=== PATIENT | male | born 1940 | race Hispanic/Latino ===

== ENCOUNTER 2022-05-20 14:54 | Emergency (ER) | payer OTHER, MEDICARE ==
[~2022-05-20] VITALS: Ht 170.2 cm; Wt 95.3 kg
[2022-05-20 15:44] LABS: BASOPHILS % (AUTO) 1.6 % (0.0-5.0); EOSINOPHILS % (AUTO) 9.4 % (0.0-8.0); LYMPHOCYTES % (AUTO) 32.3 % (21.0-51.0); MEAN CORPUSCULAR HEMOGLOBIN 30.9 pg (27.0-33.0); MEAN CORPUSCULAR HGB CONC 32.1 g/dL (32.0-36.0); MEAN CORPUSCULAR VOLUME 96.2 fL (79-99); MONOCYTES % (AUTO) 12.4 % (3.0-13.0); PLATELET COUNT (AUTO) 162 K/uL (130-400); RED BLOOD CELL COUNT(AUTO) 3.95 MIL/uL (4.50-6.20); RED CELL DISTRIBUTION WIDTH 14.9 % (11.0-15.5); WHITE BLOOD COUNT (AUTO) 5.7 K/uL (4.8-10.8)
[2022-05-20 15:54] LABS: CREATININE 1.6 mg/dL (0.5-1.5); POTASSIUM 5.1 mmol/L (3.5-5.1)
[2022-05-20 16:03] LABS: ALBUMIN 3.4 g/dL (3.5-5.0); TOTAL PROTEIN, SERUM 6.6 g/dL (6.0-8.3)
[2022-05-20 16:08] LABS: APPEARANCE,URINE CLEAR (CLEAR); BILIRUBIN,URINE NEGATIVE (NEGATIVE); COLOR,URINE YELLOW (YELLOW); GLUCOSE, URINE (UA) NEGATIVE (NEGATIVE); KETONES,URINE NEGATIVE (NEGATIVE); LEUKOCYTE ESTERASE ,URINE TRACE (NEGATIVE); NITRATE,URINE NEGATIVE (NEGATIVE); OCCULT BLOOD,URINE NEGATIVE (NEGATIVE); PROTEIN,URINE NEGATIVE (NEGATIVE)
[2022-05-20 16:19] LABS: BACTERIA,URINE Few /HPF (None Seen); RBC,URINE 0-1 /HPF (0-1); SQUAMOUS EPITHELIAL CELL,UR Few /HPF (0-2); WBC,URINE 0-1 /HPF (0-1)
[2022-05-20 16:20] LABS: MUCUS,URINE Few LPF (None Seen)
[2022-05-20 16:49] VITALS: BP 126/84
== END 2022-05-20 16:58 | disposition home or self-care (01) ==
LOC: EDH 14:54
DX: R42 Dizziness and giddiness (principal); J44.9 Chronic obstructive pulmonary disease, unspecified; K21.9 Gastro-esophageal reflux disease without esophagitis; I10 Essential (primary) hypertension; G20 Parkinson's disease; Z86.73 Personal history of transient ischemic attack (TIA), and cerebral infarction without residual deficits
CPT/HCPCS: 36415; 70450; 80053; 81001; 84484; 85025; 93005

== ENCOUNTER 2024-08-24 14:06 | Emergency (ER) | payer OTHER, MEDICARE ==
[~2024-08-24] VITALS: Ht 177.8 cm; Wt 90.7 kg
[~2024-08-24 14:06] MED LIST: ALBUHFA IH; ALLO300T2 PO; ATOR40TA69 PO; CARB1TAB35 PO; DIGO125T71 PO; DILT120C89 PO; DONE10TA43 PO; METF-445 PO; MONT-46 PO; RIVA20TA PO
[2024-08-24] MEDS ORDERED: IOHEXOL-350 75 ML VIAL IV ONE (14:19)
--- NOTE | 2024-08-24 14:27 | NUR ---
DR HERNANDEZ RADIOLOG[facility] CALLED FOR CT REPORT NEGATIVE STROKE, ATROPHY. NOTIFIED ER PHYSICIAN DR BANUELOS
--- NOTE | 2024-08-24 14:29 | HMCIMG ---
Exam: NONCONTRAST CT BRAIN REASON: STROKE/TIA. COMPARISON: 8 2222 hours TECHNIQUE: Images are obtained from vertex to the skull base. The exam was performed without IV contrast. FINDINGS: There are generous ventricles and sulci. There is decreased attenuation in the deep central white matter. These findings are consistent with atrophy. There are no acute appearing focal parenchymal lesions. There is no evidence of mass, intracranial hemorrhage or acute stroke. Posterior fossa and brainstem structures appear unremarkable. There are no abnormal fluid collections. Extra cranial soft tissues appear unremarkable as well. IMPRESSION: 1. Atrophy, no acute finding. 2. These findings discussed with patient's care team at the time of dictation. CT was performed with one or more following dose reduction techniques: automated exposure control, adjustment of the mA and kv according to patient's size, or use of a iterative reconstruction technique.
--- NOTE | 2024-08-24 14:41 | NUR ---
NIHSS 19. UNABLE TO DOCUMENT. NOT ALLOWING TO SUBMIT.
--- NOTE | 2024-08-24 14:52 | HMCIMG ---
CT ANGIO HEAD AND NECK REASON: stroke symptoms TECHNIQUE: Images were obtained from thoracic inlet through the vertex of the skull before and after bolus IV infusion of 75 ml of Isovue 350. 2D and 3D multiplanar reconstruction images were obtained in the head and neck. FINDINGS: Post contrast images in the neck show normal-appearing common carotid arteries to the level of the carotid bifurcations. There is occlusion of the right internal carotid artery at the bifurcation. There is moderate plaque on the left. There is 50-70% stenosis of the proximal left internal carotid artery by heavily calcified plaque. The left internal carotid artery is patent to the level of the [place]. There is a dominant right and smaller left vertebral artery, both are patent to the basilar confluence. Images in the brain demonstrate normal-appearing internal carotid arteries. Anterior, middle and posterior cerebral arteries appear normal. Posterior fossa vessels are unremarkable as well. There is no evidence of aneurysm or AVM. There is no evidence of focal vessel occlusion. IMPRESSION: 1. 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 2. There is heavily calcified plaque in the left bifurcation, there is 50-70% stenosis of the proximal left internal carotid artery. 3. Dominant right and smaller left vertebral arteries which are patent to the basilar confluence. 4. Normal-appearing intracranial vasculature. CT was performed with one or more following dose reduction techniques: automated exposure control, adjustment of the mA and kv according to patient's size, or use of a iterative reconstruction technique.
--- NOTE | 2024-08-24 14:57 | EKG ---
[facility] Test Date: 2024-08-24 Test Time: 14:39:38 Pat Name: RADHA CASTELAN Department: ED Room: Gender: M Production Artist: [id number] Requested By: ARABELLA BANUELOS Order Number: [id number] Reading MD: Justin Maravilla Measurements Intervals [place] Rate: 117 P: 0 IN: 0 QRS: -28 QRSD: 100 T: 143 QT: 334 QTc: 466 Interpretive Statements Atrial fibrillation Inferior infarct, old Anterolateral infarct, age indeterminate Compared to ECG 06/30/2024 11:47:10 Atrial flutter no longer present 2:1 AV block no longer present Left ventricular hypertrophy no longer present Early repolarization no longer present Myocardial infarct finding still present Electronically Signed On 08-24-2024 15:08:14 GROUP MANAGING DIRECTOR by Justin Maravilla Please click the below link to view image of tracing.
[2024-08-24 15:02] LABS: BASOPHILS # (AUTO) 0.05 K/uL (0.00-0.20); BASOPHILS % (AUTO) 0.7 % (0.0-5.0); EOSINOPHILS # (AUTO) 0.03 K/uL (0.00-0.70); EOSINOPHILS % (AUTO) 0.4 % (0.0-8.0); HEMATOCRIT 38.2 % (42-54); IMMATURE GRANULOCYTE ABSOLUTE 0.02 K/uL (0-1); LYMPHOCYTES # (AUTO) 0.8 K/uL (1.0-4.8); LYMPHOCYTES % (AUTO) 10.3 % (21.0-51.0); MEAN CORPUSCULAR HEMOGLOBIN 30.5 pg (27.0-33.0); MEAN CORPUSCULAR VOLUME 92.5 fL (79-99); MONOCYTES # (AUTO) 0.4 K/uL (0.1-1.0); MONOCYTES % (AUTO) 5.6 % (3.0-13.0); NEUTROPHILS # (AUTO) 6.1 K/uL (1.8-7.7); NEUTROPHILS % (AUTO) 82.7 % (40.0-77.0); PLATELET COUNT (AUTO) 141 K/uL (130-400); RED BLOOD CELL COUNT(AUTO) 4.13 MIL/uL (4.50-6.20); RED CELL DISTRIBUTION WIDTH 13.6 % (11.0-15.5); WHITE BLOOD COUNT (AUTO) 7.3 K/uL (4.8-10.8)
--- NOTE | 2024-08-24 15:15 | NUR ---
[place] [facility] [place] TENNILLE ZARAGOZA
[2024-08-24 15:21] LABS: APPEARANCE,URINE CLEAR (CLEAR); BILIRUBIN,URINE NEGATIVE (NEGATIVE); COLOR,URINE LIGHT-YELLOW (YELLOW); GLUCOSE, URINE (UA) NEGATIVE (NEGATIVE); KETONES,URINE NEGATIVE (NEGATIVE); LEUKOCYTE ESTERASE ,URINE NEGATIVE Leu/uL (NEGATIVE); NITRATE,URINE NEGATIVE (NEGATIVE); OCCULT BLOOD,URINE NEGATIVE (NEGATIVE); PH,URINE 5.5 (5.0-8.0); PROTEIN,URINE 10 mg/dL (NEGATIVE); UROBILINOGEN,URINE 0.2 mg/dL (0.2-1.0)
--- NOTE | 2024-08-24 15:21 | HMCIMG ---
CHEST 1VW REASON: CODE STROKE COMPARISON: 06/28/2024 FINDINGS: There is mild cardiomegaly. There is mild pulmonary vascular congestion. There may be a small left pleural effusion. The Steinmann and bony thorax appear unremarkable. IMPRESSION: 1. Borderline cardiomegaly with mild pulmonary vascular congestion.
[2024-08-24 15:26] LABS: INR 1.04 (0.85-1.15); PROTHROMBIN TIME 11.2 SEC (9.6-11.6)
[2024-08-24 15:26] LABS: ADD UA MICROSCOPIC YES
[2024-08-24 15:27] LABS: PARTIAL THROMBOPLASTIN TIME 26.9 SEC (26.3-35.5)
[2024-08-24 15:28] LABS: MUCUS,URINE RARE LPF (None Seen); RBC,URINE 0-1 /HPF (0-1); WBC,URINE 0-1 /HPF (0-1)
[2024-08-24 15:31] LABS: CREATININE 1.4 mg/dL (0.5-1.3); POTASSIUM 3.9 mmol/L (3.5-5.1)
--- NOTE | 2024-08-24 15:31 | ERN ---
General Chief Complaint: Stroke Symptoms Stated Complaint: STROKE Time Seen by MD: 14:11 History of Present Illness Initial Comments 83-year-old male who presents for altered mentation and stroke-like symptoms. Patient normally is GCS of 15 in his ambulatory. He was last known well around 2:00 a.m.. Family reports they found him this morning, he is altered, his eyes are deviated, and he appears weak on his face. He is not responding. He has otherwise been in his normal state of health. Medical history: Parkinson's, diabetes, dyslipidemia, atrial fibrillation On Xarelto PCP: Rony Valencia Allergies: Coded Allergies: No Known Allergies (Unverified Allergy, Unknown, 05/20/22) Home Meds Active Scripts Montelukast Sodium (Singulair 10Mg) 10 Mg Tab, 10 MG PO DAILY, #30 TAB 0 Refills Prov:ÁNGEL ALBERTO MD 06/30/24 Diltiazem HCl (Cardizem Cd 120 mg) 120 Mg Cap.er.24h, 120 MG PO DAILY, #30 CAPSULE.DR 0 Refills Prov:ÁNGEL ALBERTO MD 06/30/24 Digoxin (Digoxin) 125 Mcg (0.125 Mg) Tablet, 125 MCG PO DAILY, #30 TAB 0 Refills Prov:ÁNGEL ALBERTO MD 06/30/24 Reported Medications Metformin HCl (Metformin HCl) 850 Mg Tablet, 850 MG PO BID, TAB 06/23/24 Atorvastatin Calcium (LIPITOR) 40 Mg Tablet, 40 MG PO HS, TAB 06/23/24 Albuterol Sulfate (Ventolin Hfa/Proventil Hfa/Proair Hfa) 90 Mcg Puff, 90 MCG IH [id number] PRN for SHORTNESS OF BREATH, INHALER 06/23/24 Rivaroxaban (Xarelto) 20 Mg Tablet, 1 TAB PO DAILY 07/20/22 Allopurinol (Allopurinol) 300 Mg Tablet, 1 TAB PO DAILY 07/20/22 Donepezil HCl (Donepezil HCl) 10 Mg Tablet, 1 TAB PO HS 07/20/22 Carbidopa/Levodopa (Carbidopa-Levodopa 25-100 Tab) 1 Each Tablet, 1 TAB PO TID 07/20/22 Past Medical History Past Medical History: COPD, CVA, Dementia, High Cholesterol Medical History Other: PARKINSONS Past Surgical History: Other Surgical History Other: HERNIA Family History Family History: CAD, DM, HTN Social History Social History: ETOH, Lives with family, Other NIH STROKE SCALE: NIH STROKE SCALE Response (Comments) Value Level of Consciousness Not alert/min. to arouse 1 Ask patient month and their age Both incorrect 2 Command to open eyes, make fist and let go Both incorrect 2 Best gaze (horizontal eye movement) Forced Deviation 2 Visual Field Testing Partial Hemianopia 1 Facial Paresis Partial Paralysis 2 Motor Function - Left Arm Normal 0 Motor Function - Right Arm Drift 1 Motor Function - Left Leg Normal 0 Motor Function - Right Leg Drift 1 Limb Ataxia Untestable Sensory-pin prick to arms, legs, trunk and face Mild to Moderate Decrease 1 Best Language (describe picture, name items and read) Mild to Mod. Aphasia 1 Dysarthria (read several words) Mild-Mod. Slurring Words 1 Extinction and Inattention Inattent/Extinct to one 1 Total Results Laboratory and Microbiology Lab and Micro Result Laboratory Tests Test 08/24/24 14:11 08/24/24 14:30 08/24/24 14:32 08/24/24 14:45 Whole Blood Glucose 146 MG/DL (70-110) H 134 MG/DL (70-110) H White Blood Count 7.3 K/uL (4.8-10.8) Red Blood Count 4.13 MIL/uL (4.50-6.20) L Hemoglobin 12.6 g/dL (14.0-18.0) L Hematocrit 38.2 % (42-54) L Mean Corpuscular Volume 92.5 fL (79-99) Mean Corpuscular Hemoglobin 30.5 pg (27.0-33.0) Mean Corpuscular Hemoglobin Concent 33.0 g/dL (32.0-36.0) Red Cell Distribution Width 13.6 % (11.0-15.5) Platelet Count 141 K/uL (130-400) Mean Platelet Volume 12.1 fL (7.5-10.5) H Immature Granulocyte % (Auto) 0.3 % (0-1) Neutrophils (%) (Auto) 82.7 % (40.0-77.0) H Lymphocytes (%) (Auto) 10.3 % (21.0-51.0) L Monocytes (%) (Auto) 5.6 % (3.0-13.0) Eosinophils (%) (Auto) 0.4 % (0.0-8.0) Basophils (%) (Auto) 0.7 % (0.0-5.0) Neutrophils # (Auto) 6.1 K/uL (1.8-7.7) Lymphocytes # (Auto) 0.8 K/uL (1.0-4.8) L Monocytes # (Auto) 0.4 K/uL (0.1-1.0) Eosinophils # (Auto) 0.03 K/uL (0.00-0.70) Basophils # (Auto) 0.05 K/uL (0.00-0.20) Absolute Immature Granulocyte (auto 0.02 K/uL (0-1) Nucleated Red Blood Cells 0.0 % (0.0-0.19) Prothrombin Time 11.2 SEC (9.6-11.6) Prothromb Time International Ratio 1.04 (0.85-1.15) Activated Partial Thromboplast Time 26.9 SEC (26.3-35.5) Sodium Level 133 mmol/L (136-145) L Potassium Level 3.9 mmol/L (3.5-5.1) Chloride Level 100 mmol/L (101-111) L Carbon Dioxide Level 27 mmol/L (21-32) Blood Urea Nitrogen 21 mg/dL (7-18) H Creatinine 1.4 mg/dL (0.5-1.3) H Glomerular Filtration Rate Calc 50 mL/min (>90) Random Glucose 150 mg/dL (70-105) H Total Calcium 8.7 mg/dL (8.5-10.1) Total Creatine Kinase 89 U/L (21-232) # Troponin I High Sensitivity 343 ng/L (4-75) *H B-Type Natriuretic Peptide 79 pg/mL (0-100) LDL Cholesterol 53 mg/dL (0-99) Urine Color LIGHT-YELLOW (YELLOW) Urine Appearance CLEAR (CLEAR) Urine pH 5.5 (5.0-8.0) Urine Specific [place] 1.018 (1.001-1.031) Urine Protein 10 mg/dL (NEGATIVE) H Urine Glucose (UA) NEGATIVE mg/dL (NEGATIVE) Urine Ketones NEGATIVE mg/dL (NEGATIVE) Urine Occult Blood NEGATIVE (NEGATIVE) Urine Nitrate NEGATIVE (NEGATIVE) Urine Bilirubin NEGATIVE mg/dL (NEGATIVE) Urine Urobilinogen 0.2 mg/dL (0.2-1.0) Urine Leukocyte Esterase NEGATIVE [place]/uL Urine RBC 0-1 /HPF (0-1) Urine WBC 0-1 /HPF (0-1) Urine Bacteria None /HPF (None Seen) MDM CC: Altered mentation stroke-like symptoms Comorbidities: Advanced age, Parkinson's, diabetes, dyslipidemia, atrial fibrillation, on Xarelto, history of stroke Independent historian: Family. Patient was unable to answer any questions due to altered mentation and dysarthria. Onset of symptoms: Last known well 2:00 a.m., proximally 12 hours prior to arrival here. Patient code stroke, on initial evaluation he has a high NIHSS, 18 per my interpretation. A Phasix, gaze deviation, right-sided weakness, facial droop. Patient is not a candidate for thrombolytics because the onset of symptoms are greater than 4.5 hours. Vital signs stable I independently interpreted the CT head without contrast. There is no obvious bleeding. CT angio head and neck shows a right internal carotid artery occlusion at its origin. I immediately initiated the transfer process. EKG: Atrial fibrillation, rate 117, no STEMI independently interpreted by me. I spoke with Dr. Fabian, neuro interventionalist at [facility]. He recommends immediate transfer. I discuss the case with Dr. Marrero from [facility] ER. He accepts the patient. please note that the patient was in the emergency department for prolonged period of time. There was a delay due to transfer process. I spoke with the warehouse helper multiple times to try to speed up the process. It is unclear why it took so long to get the patient out of the ER. I did re-evaluate the patient and appears that he was trying to speak more than before. His symptoms were waxing and waning and appeared to be mildly improving while in the ER. REASON: stroke symptoms ORDERING PHYSICIAN: ARABELLA BANUELOS DO PROCEDURE: [facility] - CT ANGIO HEAD AND NECK CT ANGIO HEAD AND NECK REASON: stroke symptoms TECHNIQUE: Images were obtained from thoracic inlet through the vertex of the skull before and after bolus IV infusion of 75 ml of Isovue 350. 2D and 3D multiplanar reconstruction images were obtained in the head and neck. FINDINGS: Post contrast images in the neck show normal-appearing common carotid arteries to the level of the carotid bifurcations. There is occlusion of the right internal carotid artery at the bifurcation. There is moderate plaque on the left. There is 50-70% stenosis of the proximal left internal carotid artery by heavily calcified plaque. The left internal carotid artery is patent to the level of the [place]. There is a dominant right and smaller left vertebral artery, both are patent to the basilar confluence. Images in the brain demonstrate normal-appearing internal carotid arteries. Anterior, middle and posterior cerebral arteries appear normal. Posterior fossa vessels are unremarkable as well. There is no evidence of aneurysm or AVM. There is no evidence of focal vessel occlusion. IMPRESSION: 1. 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 2. There is heavily calcified plaque in the left bifurcation, there is 50-70% stenosis of the proximal left internal carotid artery. 3. Dominant right and smaller left vertebral arteries which are patent to the basilar confluence. 4. Normal-appearing intracranial vasculature. REASON: STROKE/TIA ORDERING PHYSICIAN: ARABELLA BANUELOS DO PROCEDURE: HEAD WO - CT HEAD/BRAIN W/O CONTRAST Exam: NONCONTRAST CT BRAIN REASON: STROKE/TIA. COMPARISON: 8 2222 hours TECHNIQUE: Images are obtained from vertex to the skull base. The exam was performed without IV contrast. FINDINGS: There are generous ventricles and sulci. There is decreased attenuation in the deep central white matter. These findings are consistent with atrophy. There are no acute appearing focal parenchymal lesions. There is no evidence of mass, intracranial hemorrhage or acute stroke. Posterior fossa and brainstem structures appear unremarkable. There are no abnormal fluid collections. Extra cranial soft tissues appear unremarkable as well. IMPRESSION: 1. Atrophy, no acute finding. 2. These findings discussed with patient's care team at the time of dictation. CT was performed with one or more following dose reduction techniques: automated exposure control, adjustment of the mA and kv according to patient's size, or use of a iterative reconstruction technique. ED Course Orders Procedure Category Date Status Time Vital Signs Per CPOE 08/24/24 Transmitted Routine 14:09 Cardiac Monitoring CPOE 08/24/24 Transmitted 14:09 Bedside Glucose CPOE 08/24/24 Transmitted Fingerstick 14:09 Oxygen By Nc/Pulse Ox CPOE 08/24/24 Transmitted 14:09 Saline Lock Iv CPOE 08/24/24 Transmitted 14:09 Nothing By Mouth DIET 08/24/24 Complete Dinner Bedside Swallow Eval ST 08/24/24 Transmitted 14:09 Cbc With Differential LAB 08/24/24 Complete 14:09 Partial LAB 08/24/24 Complete Thromboplastin Time 14:09 Prothrombin Time With LAB 08/24/24 Complete INR 14:09 Ct Head/Brain W/O CT 08/24/24 Resulted Contrast 14:09 12 Lead Ekg Tracing- EKG 08/24/24 Resulted Technical 14:09 Neurology Consult CONPHYSVC 08/24/24 Transmitted 14:09 Pulse Ox(Continuous) RT 08/24/24 Transmitted 14:09 Npo W/Aspiration CPOE 08/24/24 Transmitted Precautions 14:09 Complete Nih Stroke CPOE 08/24/24 Transmitted Scale 14:09 Creatine Kinase, Total LAB 08/24/24 Complete 14:09 Troponin I High LAB 08/24/24 Complete Sensitivity 14:09 B-Type Natriuretic LAB 08/24/24 Complete Peptide 14:09 Ldl Direct LAB 08/24/24 Complete 14:09 Urinalysis Profile LAB 08/24/24 Complete 14:09 Chest 1vw RAD 08/24/24 Resulted 14:09 Nihss Every Shift And CPOE 08/24/24 Transmitted PRN 14:09 Neurological Vs Q4hrs RENEA 08/24/24 Transmitted 14:09 Basic Metabolic Panel LAB 08/24/24 Complete 14:09 Ct Angio Head And Neck CT 08/24/24 Resulted 14:11 Iohexol (Omnipaque) PHA 08/24/24 Complete 14:19 Current Medications Medications (Trade) Dose Ordered Sig/Daniel Route PRN Reason Start Time Stop Time Status Last Admin Dose Admin Iohexol (Omnipaque) 75 ml STK-MED ONCE IV 08/24/24 14:19 08/24/24 14:19 DC Vital Signs Date Time Temp Pulse Resp B/P (MAP) Pulse Ox O2 Delivery O2 Flow Rate FiO2 08/24/24 16:13 106 18 136/102 97 Room Air* 0 21 08/24/24 14:57 116 12 151/102 100 Room Air* 0 21 08/24/24 14:52 Room Air 0 DX & DISP Disposition: Transfer ([facility]) Departure Impression: Primary Impression: Ischemic stroke Critical Time: 30 minutes (Critical Care Procedure NoteAuthorized and Performed by: meTotal critical care time: Approximately 36 minutesDue to a high probability of clinically significant, life threatening deterioration, the patient required my highest level of preparedness to intervene emergently and I personally spent this critical care time directly and personally managing the patient. This critical care time included obtaining a history; examining the patient; pulse oximetry; ordering and review of studies; arranging urgent treatment with development of a management plan; evaluation of patient's response to treatment; frequent reassessment; and, discussions with other providers.This critical care time was performed to assess and manage the high probability of imminent, life-threatening deterioration that could result in multi-organ failure. It was exclusive of separately billable procedures and treating other patients and teaching time.Please see MDM section and the rest of the note for further information on patient assessment and treatment.) Condition: Critical Referrals: MYNOR AQUINO (PCP) ARABELLA BANUELOS DO Aug 24, 2024 15:31
[2024-08-24 15:34] LABS: B-TYPE NATRIURETIC PEPTIDE 79 pg/mL (0-100)
--- NOTE | 2024-08-24 15:56 | NUR ---
TRANSFER REQUEST CALL PLACE TO [facility] [place] [facility] SPOKE WITH SITA AT [phone] INFORMATION PROVIDED AND AWAITING A PHONE CALL BACK. TENNILLE ZARAGOZA
[2024-08-24 16:13] VITALS: BP 136/102; PULSE 106; RESP 18; O2SAT 97
--- NOTE | 2024-08-24 16:20 | NUR ---
SPEECH NOTE: Orders to evaluate patient's swallow function as per stroke protocol received. PHYSICAL THER arrived to patient's room; however, as per Dr. Cash and nurse Itz, patient NPO at this time and plans are to transfer patient to [facility] for further evaluations. Shelbial cancelled at this time. All questions answered. Addendum: 08/24/[address] MALCOLM MARISCAL Amended: Links added.
--- NOTE | 2024-08-24 16:23 | NUR ---
TRANSFER CENTER INTAKE NURSE CALL BACK WITH ACCEPTANCE UNDER DR CAMRON GONZALEZ TO ER PRIMARY NURSE TO CALL REPORT TO [phone] AND EMS WHEN READY. TENNILLE ZARAGOZA
--- NOTE | 2024-08-24 16:45 | NUR ---
SPOKE TO DISPATCH WITH [facility] IN REGARDS TO PT. SHE WILL SET UP TRANSPORT FOR PT.
--- NOTE | 2024-08-24 16:49 | NUR ---
PATIENT REPORT GIVEN TO MONTRELL SUTTON [facility] [place] [facility]
--- NOTE | 2024-08-24 16:51 | NUR ---
EMS NOTIFIED OF CODE 3 TRANSFER
== END 2024-08-24 17:57 | disposition short-term general hospital (02) ==
LOC: EDH 14:06
DX: I63.9 Cerebral infarction, unspecified (principal); E11.9 Type 2 diabetes mellitus without complications; E78.00 Pure hypercholesterolemia, unspecified; F02.80 Dementia in other diseases classified elsewhere, unspecified severity, without behavioral disturbance, psychotic disturbance, mood disturbance, and anxiety; J44.9 Chronic obstructive pulmonary disease, unspecified; Z79.01 Long term (current) use of anticoagulants; Z79.84 Long term (current) use of oral hypoglycemic drugs; Z79.899 Other long term (current) drug therapy; Z86.73 Personal history of transient ischemic attack (TIA), and cerebral infarction without residual deficits; Z98.890 Other specified postprocedural states
CPT/HCPCS: 99285; 70496; 71045; 82550; 83721; 84484; 80048; 83880; 85025; 85610; 85730; 82948 ×2; 81001; 36415; 70498; 93005; 70450; Q9967